=== PATIENT | male | born 1995 | race Caucasian/White ===

== ENCOUNTER 2018-09-19 09:36 | Observation (INO) ==
--- NOTE | 2018-09-19 09:41 | Emergency Department Note ---
Disposition Clinical Impression: Hyperglycemia Constipation Qualifiers: Constipation type: unspecified constipation type Qualified Code(s): K59.00 - Constipation, unspecified DKA (diabetic ketoacidoses) Qualifiers: Diabetes mellitus type: other specified (including RU) Diabetes mellitus complication detail: without coma Qualified Code(s): E13.10 - Other specified diabetes mellitus with ketoacidosis without coma Disposition: Admitted As Inpatient Condition: Good Referrals: [facility] [Outside] Forms: ED Satisfaction Letter, Work/School Release Time of Disposition: 10:03 General Adult HPI - General Stated complaint: Constipation Time Seen by Provider: 09/19/18 09:39 Source: patient Mode of arrival: ambulatory Limitations: no limitations Nursing Notes Reviewed: Yes Vital Signs Reviewed: Yes - History of Present Illness HPI Narrative: 23-year-old male with insulin-dependent diabetes mellitus for evaluation of constipation. Patient states that he is not had a normal bowel movement for the past week and half. Patient has been having some liquid stools. States this is similar presentation to his constipation over a year ago. At that time the patient did take some MiraLAX which resolved the symptoms. Patient did not take any MiraLAX prior to ED arrival. Patient's mother did give him some linzess. Patient reports some nausea but no episodes of vomiting. No fevers. Patient checks his blood sugar earlier today and give himself some insulin. Patient denies history of DKA. Denies any prior abdominal surgeries. Does have a family history of IBS. - Related Data Allergies Allergy/AdvReac Type Severity Reaction Status Date / Time Amoxicillin Allergy See Verified 09/19/18 09:41 Comments All systems ED: reviewed and negative except as stated. Constitutional: Denies: fever Cardiovascular: Denies: chest pain Respiratory: Denies: cough, dyspnea Gastrointestinal: Reports: abdominal pain, nausea, constipation Past Medical History - Past Medical History Source: patient Physical Exam - General Limitations: no limitations General appearance: alert, in no apparent distress - Head Head exam: atraumatic, normocephalic, normal inspection - Eye Eye exam: Present: normal appearance, PERRL, EOMI - ENT ENT exam: normal exam, mucous membranes moist - Neck Neck exam: Present: normal inspection, trachea midline - Chest Chest inspection: Present: normal inspection - Respiratory Respiratory exam: Present: normal lung sounds bilaterally. Absent: respiratory distress - Cardiovascular Cardiovascular exam: Present: regular rate, normal rhythm. Absent: systolic murmur - Abdominal Exam Abdominal exam: Present: soft, Non-Tender, hyperactive bowel sounds. Absent: guarding, rebound - Extremities Exam Extremities exam: Present: normal inspection. Absent: pedal edema - Expanded Lower Extremity Exam Neurovascular/Tendon exam: Present: normal capillary refill - Back Exam Back exam: Present: normal inspection - Neurological Exam Neurological exam: Present: alert, oriented X3 - Skin Skin exam: Present: warm, dry, intact, normal color Course Course Narrative: Patient seen and examined. Patient's abdomen is nonsurgical. Does have hyperactive bowel sounds but appears be soft. Mother is requesting imaging. Will get a KUB. Patient also get a POC glucose. Patient does not appear clinically dehydrated. We will treat his symptoms with MiraLAX and have appropriate follow-up with his primary care doctor. Continue with good diabetic control. - Reevaluation(s) Reevaluation #1: Patient had an elevated PSA glucose. Prompted additional labs and IV fluids. Time: 10:26 Reevaluation #2: Patient presented with signs of constipation. Patient did have a PSA glucose which was elevated which prompted additional evaluation to ensure the patient was not in DKA. Patient labs show mild DKA. Patient will be fluid hydrated and started on insulin drip. Mother states the patient has had decreased by mouth intake. Concerns the patient may worsen if sent home without thorough correction. Mom is concerned the patient symptoms would get worse if not properly corrected. Patient was started on insulin drip with IV fluid hydration. Patient does not have a gap. Time: 11:21 Vital Signs Temperature 99.1 F 09/19/18 09:38 Pulse Rate 104 09/19/18 09:38 Respiratory Rate 16 09/19/18 09:38 Blood Pressure 103/66 09/19/18 09:38 O2 Sat by Pulse Oximetry 99 09/19/18 09:38 Temperature 99.1 F 09/19/18 10:40 Pulse Rate 89 09/19/18 10:40 Respiratory Rate 16 09/19/18 10:40 Blood Pressure 125/79 09/19/18 10:40 O2 Sat by Pulse Oximetry 99 09/19/18 10:40 Oxygen Delivery Oxygen Delivery Room Air Medical Decision Making - MDM Narrative Medical decision making narrative: Patient presented for concerns of constipation. Patient's initial ED evaluation prompted POC glucose. Patient's glucose was elevated which prompted additional evaluation to ensure the patient was not in DKA. Patient labs show some mild DKA with acidosis with a pH is 7.31 ketones as well as hyperglycemia. Patient does not have a gap. Patient does have concerns of worsening fluid status upon discharge. Patient will be resuscitated with crystalloid as well as insulin. Patient's abdomen is soft and is no concerns for any surgical intra-abdominal pathology. Patient does have moderate stool in the colon consistent with const ipation. At this juncture, the most likely etiology of the patient's DKA is secondary to his poor by mouth intake with his medications. - Lab Data Lab results reviewed: Yes I reviewed the patient's lab results. Result diagrams: 09/19/18 10:32 09/19/18 10:32 Lab Results 09/19/18 09/19/18 09/19/18 Range/Units 10:23 10:32 10:32 WBC 5.9 (4.3-11.1) K/mcL RBC 5.41 (4.19-5.50) M/mcL Hgb 15.8 (12.9-16.9) g/dL Hct 45.9 (37.5-50.1) % MCV 84.8 (83.0-100.0) fL MCH 29.2 (28.0-33.3) pg MCHC 34.4 (31.6-35.5) g/dL RDW 12.0 (11.5-14.5) % Plt Count 175 (140-400) K/mcL MPV 11.6 (9.4-12.4) fL Immature Gran % 0.5 (0-4) % Seg Neutrophils % 71.0 % Lymphocytes % 14.2 % Monocytes % 12.1 % Eosinophils % 1.9 % Basophils % 0.3 % Neutrophils # 4.2 (1.6-8.9) K/mcL Lymphocytes # 0.8 (0.6-4.6) K/mcL Monocytes # 0.7 (0.0-1.3) K/mcL Eosinophils # 0.1 (0.0-0.6) K/mcL Basophils # 0.0 (0.0-0.2) K/mcL VBG pH (7.32-7.42) pH Units VBG pCO2 (41-51) mmHg VBG pO2 (25-50) mmHg VBG HCO3 (21-27) mEq/L Sodium 133 L (136-145) mEq/L Potassium 4.2 (3.5-5.1) mEq/L Chloride 100 (98-107) mEq/L Carbon Dioxide 25 (23-29) mEq/L BUN 16 (6-20) mg/dL Creatinine 0.88 (0.70-1.30) mg/dL Est GFR ( Amer) > 60 (> 60) Est GFR (Non-Af Amer) > 60 (> 60) BUN/Creatinine Ratio 18 (6-26) Glucose 371 H (70-105) mg/dL POC Glucose 348 H (70-99) mg/dL Calculated Osmolality 292 (280-300) Calcium 8.6 (8.6-10.3) mg/dL Beta-Hydroxybutyric Acd (0.02-0.27) mmol/L 09/19/18 09/19/18 Range/Units 10:32 10:45 WBC (4.3-11.1) K/mcL RBC (4.19-5.50) M/mcL Hgb (12.9-16.9) g/dL Hct (37.5-50.1) % MCV (83.0-100.0) fL MCH (28.0-33.3) pg MCHC (31.6-35.5) g/dL RDW (11.5-14.5) % Plt Count (140-400) K/mcL MPV (9.4-12.4) fL Immature Gran % (0-4) % Seg Neutrophils % % Lymphocytes % % Monocytes % % Eosinophils % % Basophils % % Neutrophils # (1.6-8.9) K/mcL Lymphocytes # (0.6-4.6) K/mcL Monocytes # (0.0-1.3) K/mcL Eosinophils # (0.0-0.6) K/mcL Basophils # (0.0-0.2) K/mcL VBG pH 7.31 L (7.32-7.42) pH Units VBG pCO2 50 (41-51) mmHg VBG pO2 39 (25-50) mmHg VBG HCO3 25 (21-27) mEq/L Sodium (136-145) mEq/L Potassium (3.5-5.1) mEq/L Chloride (98-107) mEq/L Carbon Dioxide (23-29) mEq/L BUN (6-20) mg/dL Creatinine (0.70-1.30) mg/dL Est GFR ( Amer) (> 60) Est GFR (Non-Af Amer) (> 60) BUN/Creatinine Ratio (6-26) Glucose (70-105) mg/dL POC Glucose (70-99) mg/dL Calculated Osmolality (280-300) Calcium (8.6-10.3) mg/dL Beta-Hydroxybutyric Acd 1.93 H (0.02-0.27) mmol/L - Radiology Data Radiology results reviewed: Yes I reviewed the patient's radiology results. KUB X-Ray 09/19/18 10:02 IMPRESSION: No acute findings. Moderate amount stool in the right colon. D/ / Jodi Brooks MD / Jodi Brooks MD Interpreting Provider: Jodi Brooks MD S.[facility] - [facility] Situation: Demographics Background: Presenting Complaint Assessment: Vital Signs, Course and respsone to treatment, Patient/Family Expectation Recommendation: Barrier(s) to disposition, Recommendation based on pending studies, treatments, or consults [email or web address] Report Given to: Dr. Todd Araiza Repor Time: 11:27 Attestation Statement - Attestation Attestation: I examined this patient and my medical decision-making was reviewed with the Resident Physician, Dr. Eastman. I agree with the documented findings, disposit ion and treatment plan as described except to the extent set forth below. Pt is a 23 yo wm, hx Type 1 DM who is here with c/o constipation x 10 days, and now with c/o dec PO intake secondary to nausea and abd bloating and discomfort. No F/C, pt does report that his BS was elevated this morning and took additional SS insulin prior to coming into the ER today. No prior hx DKA, or hospit alizations for DM. Pt denies any blood in stool, no ill contacts. No meds that should provoke constipation. I agree with the PE findings as documented, VSS. Pt appears clinically dehydrated, with dry MM/lips, and no peritoneal signs on abd exam. Pt received IV flluids, lab assessment for possible DKA and AAS. AAS shows constipation. No obstruction. Labs meet criteria for DKA. Mother doesn't feel he can take PO well due to constipation, and stool softeners could precipitate additional fluid losses. Will admit for obs for DKA and constipation. D/W hospitalist.
--- NOTE | 2018-09-19 10:13 | Emergency Department Note ---
Addendum entered and electronically signed by Maddi Rodriguez 09/19/18 20:31: Original Note: Disposition Clinical Impression: Hyperglycemia, DKA (diabetic ketoacidoses) Constipation Qualifiers: Constipation type: unspecified constipation type Qualified Code(s): K59.00 - Constipation, unspecified Disposition: Admitted As Inpatient Condition: Good Referrals: [facility] [Outside] Forms: ED Satisfaction Letter, Work/School Release Abdominal Pain HPI - General Chief Complaint: ED Abdominal Pain Stated Complaint: Constipation Time Seen by Provider: 09/19/18 09:39 Source: patient, family Mode of arrival: ambulatory Limitations: no limitations Vital Signs Reviewed: Yes - History of Present Illness HPI Narrative: Mr. Mills is a 23yom w. hx of DM1 who presents to the ED c/o constipation. pt reports that he has not had a normal formed bowel movement x1.5wks a/w vomiting at during first day of constipation, says since onset he has had a few "yellow liquid" BMs. he is c/o continued nausea with diffuse abd pain/cramping and bloating, has been belching frequently and continues to pass gas. has had decreased appetite, stating he feels like his food is just sitting and not going down, but is keeping fluids onboard. he notes he has had some chills but no fevers, and some decreased urine output which he describes as "concentrated". pt had a similar episode of constipation ~1yr ago and took "a concoction of 11 doses of miralax" to relieve his sx at that time. mom notes that there is a significant family hx of IBS and pt has occassionally used her Linzess, says he used it yesterday with no relief of sx. he has not taken any laxatives to try to relieve sx. mom also notes that they believe pt may have diabetic gastroparesis, says he is supposed to see his PCP this week to get a referral to GI for further w/u. pt notes that his blood sugars have been somewhat variable since onset of constipation, said hs Glu was 199 this am, took his insulin; upon recheck Glu was 212 so he gave himself an additional insulin correction. pt and mother report that he has never been in DKA. 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 Pt Subjective Complaint: abdominal pain, other (diffuse, a/w constipation) Onset (ago): day(s) (10) Consistency: constant Location: diffuse Pain Severity: mild, moderate Pain Scale: 7 Quality: cramping, aching, fullness Radiation: other (R chest) Migration to: no migration Improves with: nothing Worsens with: eating, other (leaning forward) Context: history of similar episodes (x1), other (hx IBS, possible w/u for DM gastroparesis) Associated symptoms: Reports: nausea, vomiting (resolved), diarrhea ("yellow liquid"), chills, constipation, anorexia. Denies: fever, hematemesis, hematochezia, melena, hematuria Treatments prior to arrival: none - Related Data Allergies Allergy/AdvReac Type Severity Reaction Status Date / Time Amoxicillin Allergy See Verified 09/19/18 09:41 Comments Review of Systems: As Per HPI Constitutional: Reports: chills. Denies: fever Cardiovascular: Denies: chest pain, palpitations, dyspnea on exertion, syncope Respiratory: Denies: cough, dyspnea, wheezes Gastrointestinal: Reports: abdominal pain, nausea, vomiting, diarrhea, constipation. Denies: hematemesis, melena, hematochezia Genitourinary: Reports: dysuria, other (decreased frequency, "concentrated urine"). Denies: urgency, frequency, hematuria Endocrine: Denies: fatigue, polydipsia, polyuria Course Vital Signs Temperature 99.1 F 09/19/18 09:38 Pulse Rate 104 09/19/18 09:38 Respiratory Rate 16 09/19/18 09:38 Blood Pressure 103/66 09/19/18 09:38 O2 Sat by Pulse Oximetry 99 09/19/18 09:38 Temperature 99.1 F 09/19/18 09:38 Pulse Rate 104 09/19/18 09:38 Respiratory Rate 16 09/19/18 09:38 Blood Pressure 103/66 09/19/18 09:38 O2 Sat by Pulse Oximetry 99 09/19/18 09:38 Oxygen Delivery Oxygen Delivery Room Air Abdominal Pain - Lab Data Result diagrams: 09/19/18 10:32 09/19/18 10:32 Lab Results 09/19/18 Range/Units 10:23 POC Glucose 348 H (70-99) mg/dL Attestation Statement - Attestation Attestation: I have re-performed and reviewed the history documented by the medical student, and I confirm its accuracy except as noted below
[2018-09-19] MEDS ORDERED: Ondansetron 4 MG/2 ML VIAL IVP ONE (10:25)
[2018-09-19] MEDS ORDERED: 0.9 % Sodium Chloride 1,000 ML IVC ONE ×2 (10:25→10:52)
[2018-09-19 10:45] LABS: Basophils % 0.3 %; Eosinophils # 0.1 K/mcL (0.0-0.6); Eosinophils % 1.9 %; Hematocrit 45.9 % (37.5-50.1); Hemoglobin 15.8 g/dL (12.9-16.9); Immature Granulocytes % 0.5 % (0-4); Lymphocytes # 0.8 K/mcL (0.6-4.6); Lymphocytes % 14.2 %; Mean Corpuscular HGB Conc 34.4 g/dL (31.6-35.5); Mean Corpuscular Hemoglobin 29.2 pg (28.0-33.3); Mean Corpuscular Volume 84.8 fL (83.0-100.0); Mean Platelet Volume 11.6 fL (9.4-12.4); Monocytes # 0.7 K/mcL (0.0-1.3); Monocytes % 12.1 %; Neutrophils # 4.2 K/mcL (1.6-8.9); Platelet Count 175 K/mcL (140-400); Red Blood Count 5.41 M/mcL (4.19-5.50)
[2018-09-19] MEDS ORDERED: Insulin Human Regular 10 UNIT in 0.9 % Sodium Chloride 10 ML IV ONE (10:46)
[2018-09-19 10:49] LABS: VBG HCO3 25 mEq/L (21-27); VBG PCO2 50 mmHg (41-51); VBG PH 7.31 pH Units (7.32-7.42); VBG PO2 39 mmHg (25-50)
[2018-09-19 11:07] LABS: BUN/Creatinine Ratio 18 (6-26); Blood Urea Nitrogen 16 mg/dL (6-20); Calcium 8.6 mg/dL (8.6-10.3); Carbon Dioxide 25 mEq/L (23-29); Chloride 100 mEq/L (98-107); Glucose 371 mg/dL (70-105); Osmolality,Calculated 292 (280-300); Potassium 4.2 mEq/L (3.5-5.1); Sodium 133 mEq/L (136-145); eGFR For Non-African Americans > 60 (> 60)
[2018-09-19] MEDS ORDERED: D5% in 0.45% NACL w KCl 20 MEQ/1,000 ML MLS IVC PRN (11:17)
[2018-09-19] MEDS ORDERED: *HR* Dextrose 50 % in Water (Syg) 50 ML SYRINGE IVP PRN (11:17)
[2018-09-19] MEDS ORDERED: Insulin Human Regular 100 UNIT in 0.9 % Sodium Chloride 100 ML IVC SCH (11:30)
[2018-09-19] MEDS ORDERED: 0.45 % Sodium Chloride w/KCl 20 MEQ/1,000 ML MLS IVC SCH (11:30)
[2018-09-19 11:36] LABS: Magnesium 1.7 mg/dL (1.6-2.6); Phosphorous 2.2 mg/dL (2.7-4.5)
[2018-09-19] MEDS ORDERED: Naloxone 0.4 MG/ML INJ IVP PRN (11:51)
--- NOTE | 2018-09-19 11:56 | Internal Med History&Physical ---
Date of Encounter: 09/19/18 Time of Encounter: 11:53 Internal Medicine - H&P: HPI Chief complaint: Diarrhea, Unable to take PO Admitted From: Home History of present illness: Mr. Mills is a 23 year old male with past medical history of type 1 diabetes since 8 years old on insulin, IBS for 3 years who came in with complain of not having normal bowel movement since last 1-1/2 week. Patient has history of fall irritable bowel disease with predominant diarrhea and has been elevated diarrhea for last 1.5 week. Per mother at bedside patient was referred to GI specialist and has not been seen by them yet. Patient has taken Imodium for diarrhea with minimal to no relief. He has some associated abdominal pain since yesterday which is cramping in nature coming and going every 15 minutes and occasionally when he moves. Denies any fevers but had some chills yesterday and felt cold. Patient initially thought to have constipation however on further history patient mentioned that he has not had normal bowel movement however had had constipation for last 1.5 week with about 3-4 episodes daily. He also has significant abdominal fullness sensation whenever he drinks any fluid to maintain hydration. Given his diabetes he came to the hospital he was not able to drink enough fluid to compensate for his diarrhea. He denies missing any in sulin dosages or previous history of DKA. He is comfortable managing his insulin regimen at home and did take insulin this morning as well as long-acting insulin yesterday. He takes 24 units after [facility]. He has history of anxiety and takes Lexapro for it with some benefit. He denies taking any pain medication or antidiarrheal medication. Occasionally he had tried Imodium with minimal relief he complains of sore taste in mouth and occasional burning sensation in his chest. Admission was requested given patient was not able to tolerate by mouth fluids. On interview patient in no acute distress was able to corroborate up I will mention history. Denies chest pain, difficulty breathing, urinary complaints. Is associated nausea and becomes full with minimal amount of fluid intake. Past Med Surg Social Fam HX - Past Medical History Medical history: diabetes Psychiatric history: anxiety, depression - Past Surgical History Additional surgical history: Heart ablation for SVT - Social History Smoking Status: Current every day smoker Alcohol use: occasionally Drug use: marijuana - Additional Family History Additional family history: type 2 diabetes in grandfather, anxiety in father and mother. IBS in mother. Internal Medicine - H&P: Meds Allergy/AdvReac Type Severity Reaction Status Date / Time Amoxicillin Allergy See Verified 09/19/18 09:41 Comments All Systems PM: A 10-system review of systems was performed and is negative for pertinent findings except as documented above in the HPI. - Constitutional Vitals: Temp Pulse Resp BP Pulse Ox 99.1 F 89 16 125/79 99 09/19/18 10:40 09/19/18 10:40 09/19/18 10:40 09/19/18 10:40 09/19/18 10:40 Exam: Constitutional: Vitals as noted. Conversant. No Apparent Distress. Eyes : Sclera white, conjunctiva clear, no lid lag, PEARLA. ENT : Grossly normal hearing. Oropharyngeal exam unremarkable. Dry mucus membranes. No JVD, no cervical lymphadenopathy. no thyromegaly or mass. Respiratory : Clear to auscultation bilaterally. No accessory muscle use, rales, rhonchi or wheezes Cardiovascular : RRR, +S1, +S2. no murmur, gallop, rubs. No chest wall tenderness GI/Abdominal : Soft, mild epigastric tenderness, Non-distended, normal bowel sounds, soft, no peritoneal signs. no orgenomegaly or mass appreciated. no herni a. Musculoskeletal: no deformity noted. no edema or cyanosis. warm extremities, pulses palpable and symmetrical in UE/LE. no calf tenderness. Neurological: AO X3, CN II-XII grossly intact, grossly normal motor and sensory exam. Skin: No skin rash, lesions or ulcers noted. Pych: Good insight and judgement. Intact memory. AOx3. Internal Med - H&P Results - Labs CBC & Chem 7: 09/19/18 10:32 09/19/18 10:32 Labs: Short CBC 09/19/18 Range/Units 10:32 WBC 5.9 (4.3-11.1) K/mcL Hgb 15.8 (12.9-16.9) g/dL Hct 45.9 (37.5-50.1) % Plt Count 175 (140-400) K/mcL Neutrophils # 4.2 (1.6-8.9) K/mcL BMP 09/19/18 10:32 Sodium 133 L Potassium 4.2 Chloride 100 Carbon Dioxide 25 BUN 16 Creatinine 0.88 Glucose 371 H Calcium 8.6 - ABG Interpretation ABG results: 09/19/18 10:45 VBG pH 7.31 L VBG pCO2 50 VBG pO2 39 VBG HCO3 25 - Impressions ITS Impressions KUB X-Ray 09/19/18 10:02 IMPRESSION: No acute findings. Moderate amount stool in the right colon. D/ / Jodi Brooks MD / Jodi Brooks MD Interpreting Provider: Jodi Brooks MD - Assessment and plan (1) Dehydration Current Visit: Yes Status: Acute Assessment and plan: - Patient has hyperglycemia with ongoing diarrhea and unable to take significant by mouth fluids - We will admit under observation for IV fluids - No Anionic gap However with elevated Beta-hydroxybutyric acid likely from decreased by mouth intake - Discontinue insulin drip and start sliding scale insulin with 20 units of Levemir - Mild dehydration clinically. Continue IV fluids of NS at 125 mL an hour - Accu-Checks before meals at bedtime - Loperamide for IBS to help decrease episodes of diarrhea - Sodium phosphate for low phosphorus (2) Hyperglycemia Current Visit: Yes Status: Acute Assessment and plan: - Accu-Cheks before meals at bedtime - Sliding scale insulin along with 20 units Levemir at bedtime (3) Diabetes mellitus Current Visit: Yes Status: Acute Assessment and plan: - As above - Does not appear to be in DKA Qualifiers: Diabetes mellitus type: type 1 Diabetes mellitus complication status: with hyperglycemia Qualified Code(s): E10.65 - Type 1 diabetes mellitus with hyperglycemia - Time Spent With Patient Total time spent is greater than 50% in coordination of care (as documented) at patient's floor/unit and/or counseling patient: - VTE Reasons for not Prescribing Prophylaxis: Treatment not Indicated - Low risk for VTE
[2018-09-19] MEDS ORDERED: Loperamide 1 MG/5 ML UDC PO PRN (12:16)
[2018-09-19 13:03] LABS: Bilirubin,Urine Negative (Negative); Blood,Urine Negative (Negative); Clarity,Urine Clear (Clear); Color,Urine Yellow (Yellow); Glucose,Urine (UA) >=1000 mg/dL (Normal); Ketones,Urine 80 mg/dL (Negative); Leukocyte Esterase,Urine Negative (Negative); Nitrite,Urine Negative (Negative); Protein,Urine Negative (Neg-Trace); Specific Gravity,Urine > 1.030 (1.010-1.025); Urobilinogen,Urine Normal (Normal)
[2018-09-19] MEDS: 0.9 % Sodium Chloride 1,000 ML IVC SCH ×2 (15:21→23:20)
[2018-09-19] MEDS: Insulin LISPRO 300 UNITS/3 ML VIAL SQ SCH (16:39)
[2018-09-19] MEDS ORDERED: Insulin DETEMIR 100 UNIT/ML X5UNITS SQ SCH (21:00)
[2018-09-19] MEDS ORDERED: Ondansetron 4 MG/2 ML VIAL IVP PRN (21:38)
[2018-09-19] MEDS ORDERED: Ondansetron 4 MG/2 ML VIAL ONE (21:43)
[2018-09-20] MEDS ORDERED: *HR* Promethazine 25 MG/ML VIAL IVP PRN (01:56)
[2018-09-20 03:58] LABS: BUN/Creatinine Ratio 11 (6-26); Blood Urea Nitrogen 8 mg/dL (6-20); Calcium 8.2 mg/dL (8.6-10.3); Carbon Dioxide 28 mEq/L (23-29); Chloride 105 mEq/L (98-107); Glucose 192 mg/dL (70-105); Osmolality,Calculated 288 (280-300); Potassium 3.6 mEq/L (3.5-5.1); Sodium 137 mEq/L (136-145); eGFR For Non-African Americans > 60 (> 60)
[2018-09-20] MEDS: 0.9 % Sodium Chloride 1,000 ML IVC SCH (07:35)
[2018-09-20] MEDS: Insulin LISPRO 300 UNITS/3 ML VIAL SQ SCH ×3 (07:37→16:45)
[2018-09-20] MEDS ORDERED: 0.9 % Sodium Chloride 500 ML IVC ONE (09:07)
--- NOTE | 2018-09-20 09:07 | Internal Med Progress Note ---
<Juanjose Serrano - Last Filed: 09/20/18 11:37> Hospitalist Progress Note - Encounter Date of Encounter: 09/20/18 Time of Encounter: 09:00 - Subjective Interval History: Laying comfortably in bed. He states he had diarrhea for 10 days and then the last 3 days he has not had a BM. Last night he said he was able to have minimal hard, formed BM that required a lot of straining. He has RLQ abdominal pain and occasional nausea. Denies blurry vision, diplopia, dizziness/lightheadedness, chest pain, sob, abdominal pain elsewhere or vomiting. - Exam Vitals: Temp Pulse Resp BP Pulse Ox 97.7 F 60 17 97/58 99 09/20/18 07:12 09/20/18 07:12 09/20/18 07:12 09/20/18 07:12 09/20/18 05:00 Exam: General: Awake, alert, appears stated age, no acute distress or signs of toxicity HEENT: EOMi, pupils equal/round, mucus membranes moist Cardiac: RRR, no murmurs, heaves, thrills appreciated, radial pulse 2+ bilaterally, normal capillary refill, no edema Chest: Symmetric chest rise, non tender Pulmonary: Normal resp effort, good air movement, CTAB, no wheezes, rhonchi, rales appreciated Abdominal: Soft, mildly tender to palpation RLQ, no distention, guarding, rebound tenderness, or rigidity Neuro: AOx3, CN grossly intact Psych: Normal affect Integumentary: [place], warm, dry, intact - Assessment and Plan (1) Dehydration Current Visit: Yes Status: Acute Assessment and Plan: -Had diarrhea for 10 days that resolved 4 days ago. He has not had diarrhea since but rather constipation. -He has not been able to tolerate normal fluid intake by mouth cause he feels full with minimal intake for hours after. -Has received ~4L IVF since arrival. -BP has dropped some overnight and most recently 97/58, no increase in HR or symptoms of hypovolemia. -Will give 500ml bolus now. -Likely dc tomorrow. (2) Constipation Current Visit: Yes Status: Acute Assessment and Plan: -Had diarrhea for 10 days followed by no BM for 3 days prior to admission. -Had 1 very small BM that was hard and required lots of straining last night. None since. -RLQ pain/tenderness. -Moderate amount of stool in R colon on KUB 09/19/18. -Will continue miralax and fluids now. (3) Hyperglycemia Current Visit: Yes Status: Acute Assessment and Plan: -Type 1 DM -Glucose 371 in ED, no gap at 8, ketones at 1.93 in ED and started on DKA protocol with IVF and insulin infusion. -DKA is not evident now and insulin infusion has been stopped. -Continue basal and SSI. -Glucose has been trending down and most recently 107 POC. (4) Diabetes mellitus Current Visit: Yes Status: Acute Assessment and Plan: -Does not appear to be in DKA currently. -Continue basal and SSI -Continue accucheks -Most recent POC glucose 107 DVT Prophylaxis: Mechanical - Time Spent with Patient Total time spent is greater than 50% in coordination of care (as documented) at patient's floor/unit and/or counseling patient: less than 15 minutes Plan of Care Discussed with: patient Internal Medicine: Result - Labs CBC & Chem 7: 09/19/18 10:32 09/20/18 03:16 Labs: Short CBC 09/19/18 Range/Units 10:32 WBC 5.9 (4.3-11.1) K/mcL Hgb 15.8 (12.9-16.9) g/dL Hct 45.9 (37.5-50.1) % Plt Count 175 (140-400) K/mcL Neutrophils # 4.2 (1.6-8.9) K/mcL BMP 09/19/18 09/20/18 10:32 03:16 Sodium 133 L 137 Potassium 4.2 3.6 Chloride 100 105 Carbon Dioxide 25 28 BUN 16 8 Creatinine 0.88 0.74 Glucose 371 H 192 H Calcium 8.6 8.2 L Urine 09/19/18 Range/Units 12:30 Urine Color Yellow (Yellow) Urine Clarity Clear (Clear) Urine pH 6.0 (5.0-8.0) pH Units Ur Specific [place] > 1.030 H (1.010-1.025) Urine Protein Negative (Neg-Trace) mg/dL Urine Glucose (UA) >=1000 H (Normal) mg/dL - Impressions Impressions KUB X-Ray 09/19/18 10:02 IMPRESSION: No acute findings. Moderate amount stool in the right colon. D/ / Jodi Brooks MD / Jodi Brooks MD Interpreting Provider: Jodi Brooks MD - VTE Reasons for not Prescribing Prophylaxis: Treatment not Indicated - Low risk for VTE Consult Discharge Plan - Plan Referrals: Luna Paris CNP [Partnered Physician] - 09/21/18 8:30 am <Kassie Ibrahim - Last Filed: 09/20/18 15:18> Hospitalist Progress Note - Exam Vitals: Temp Pulse Resp BP Pulse Ox 97.7 F 56 19 124/75 97 09/20/18 07:12 09/20/18 11:30 09/20/18 11:30 09/20/18 11:30 09/20/18 11:30 - Assessment and Plan (1) Constipation Current Visit: Yes Status: Acute (2) Hyperglycemia Current Visit: Yes Status: Acute (3) Dehydration Current Visit: Yes Status: Acute (4) Diabetes mellitus Current Visit: Yes Status: Acute - Time Spent with Patient Total time spent is greater than 50% in coordination of care (as documented) at patient's floor/unit and/or counseling patient: Internal Medicine: Result - Labs CBC & Chem 7: 09/19/18 10:32 09/20/18 03:16 Labs: BMP 09/20/18 03:16 Sodium 137 Potassium 3.6 Chloride 105 Carbon Dioxide 28 BUN 8 Creatinine 0.74 Glucose 192 H Calcium 8.2 L - Attending Attestation I examined this patient and my medical decision-making was reviewed with the Resident Physician Dr Serrano. I agree with the documented findings, disposition and treatment plan as described except to the extent set forth below. Mr Mills was admitted with recent frequent small liquid bms and now 4 days of constipation with hard small bm last night. He had associated nausea and fullness with meals that has since resolved. He was admitted with ivfs for possible dehydration. There was concern for DKA in ED and he was briefly on insulin drip. It appears now he was hyperglycemic with a mixed picture though not entirely meeting criteria for DKA, since that time bs are controlled on basal and SSI . awake, confirms more recently constipated. cramping abd pain intermittently. small hard brown bm that he strained with last evening. no nausea, emesis with breakfast this morning. no lightheadedness, dizziness with low/normotensive bps. Overall starting to feel better. denies fevers, chills. gen- alert, awake,appears stated age eyes- pupils equal round, no scleral icterus, no pallor conjuntiva cv- reg rate and rhythm, normal s1,s2, no murmurs appreciated lungs- ctabl, no wheezing, rhonchi or crackles abd- soft, non tender, non distended, + bs neuro- AAOx3 constipation- KUB with moderate stool burden right colon, small hard bm last evening, cont miralax bid, diet as tolerated Hyperglycemia- improved, bs now under 200, takes 24 lantus hs at home, 20 untis levemir hs here + SSI, cont to monitor; there is no apparent infectious etiology of elevated blood sugars as he denies any s/s of infection on ros and has no fever or leukocytosis Possible dehydration on admission- ivfs on admit, creat is normal Low Bp overnight/early am check- s/p 500 cc ns bolus, normotensive, asx, cont to monitor now off fluids dispo- anticipate dc to home in am if cont to tolerate oral intake and has bm <Juanjose Serrano - Last Filed: 09/20/18 11:37> (2) Constipation Qualifiers: Constipation type: unspecified constipation type Qualified Code(s): K59.00 - Constipation, unspecified (4) Diabetes mellitus Qualifiers: Diabetes mellitus type: type 1 Diabetes mellitus complication status: with hyperglycemia Qualified Code(s): E10.65 - Type 1 diabetes mellitus with hy perglycemia <Kassie Ibrahim - Last Filed: 09/20/18 15:18> (1) Constipation Qualifiers: Constipation type: unspecified constipation type Qualified Code(s): K59.00 - Constipation, unspecified (4) Diabetes mellitus Qualifiers: Diabetes mellitus type: type 1 Diabetes mellitus complication status: with hyperglycemia Qualified Code(s): E10.65 - Type 1 diabetes mellitus with hyperglycemia
[2018-09-20 16:36] VITALS: BP 136/77
--- NOTE | 2018-09-20 18:25 | Discharge Summary ---
<Adal Major - Last Filed: 09/20/18 18:28> - NOTES TO OUTPATIENT PROVIDER Notes to Outpatient Provider: 23 yo patient with IBS came in with constipation/RLQ pain. KUB with mod R colon stool, no BM 3 days prior to admission. Received ~4L IVF. Return of normal BMs on miralax, glucose improved. Discharged with outpatient follow up scheduled on 09/21/18. Date of Encounter: 09/20/18 Time of Encounter: 18:23 - Discharge Diagnosis (1) Constipation Priority: Primary Status: Acute Assessment and Plan: -Had diarrhea for 10 days followed by no BM for 3 days prior to admission. -Had 1 very small BM that was hard and required lots of straining last night. None since. -RLQ pain/tenderness. -Moderate amount of stool in R colon on KUB 09/19/18. -Will continue miralax and fluids now. Qualifiers: Constipation type: unspecified constipation type Qualified Code(s): K59.00 - Constipation, unspecified (2) Hyperglycemia Priority: Secondary Status: Acute Assessment and Plan: -Type 1 DM -Glucose 371 in ED, no gap at 8, ketones at 1.93 in ED and started on DKA protocol with IVF and insulin infusion. -DKA is not evident now and insulin infusion has been stopped. -Continue basal and SSI. -Glucose has been trending down and most recently 107 POC. (3) Dehydration Priority: Secondary Status: Acute Assessment and Plan: -Had diarrhea for 10 days that resolved 4 days ago. He has not had diarrhea since but rather constipation. -He has not been able to tolerate normal fluid intake by mouth cause he feels f ull with minimal intake for hours after. -Has received ~4L IVF since arrival. -BP has dropped some overnight and most recently 97/58, no increase in HR or symptoms of hypovolemia. -Will give 500ml bolus now. -Likely dc tomorrow. (4) Diabetes mellitus Priority: Secondary Status: Acute Assessment and Plan: -Does not appear to be in DKA currently. -Continue basal and SSI -Continue accucheks -Most recent POC glucose 107 Qualifiers: Diabetes mellitus type: type 1 Diabetes mellitus complication status: with hyperglycemia Qualified Code(s): E10.65 - Type 1 diabetes mellitus with hyperglycemia Hospital course: Mr. Mills is a 23 year old male with a PMH of DM and IBS who came in with constipation/RLQ pain. KUB revealed mod R colon stool, no BM 3 days prior to admission. Patient received ~4L IVF. He had return of normal bowel function with miralax, glucose level normalized. Patient was much improved after overnight stay and was very adamant about going home. Patient already had follow up scheduled with PCP 09/21/18. Mother is at bedside and all questions were answered. Discharge discussed with: patient, family, nurse - Time Spent with Patient Total time spent providing and/or coordinating discharge services: - Discharge Medications Home Medications: Escitalopram [Lexapro] 20 mg PO DAILY 09/19/18 [History] Insulin Glargine,Hum.rec.anlog [Toujeo Solostar] 24 unit SQ DAILY 09/19/18 [History] Insulin LISPRO [Admelog] 1 - 28 unit SQ TID 09/19/18 [History] Allergies/Adverse Reactions: Allergy/AdvReac Type Severity Reaction Status Date / Time Amoxicillin Allergy See Verified 09/19/18 09:41 Comments Date of admission: 09/19/18 13:50 Primary care physician: PCP NONE Discharging clinician: Kassie Ibrahim Anticipated date of discharge: 09/20/18 - Constitutional Vitals: Temp Pulse Resp BP Pulse Ox 97.7 F 76 19 136/77 98 09/20/18 07:12 09/20/18 16:32 09/20/18 16:32 09/20/18 16:32 09/20/18 16:32 General appearance: Present: cooperative, A&O X 3, pleasant, no acute distress, answers questions appropriately Exam: awake - Head Head exam: Present: atraumatic, normocephalic - Eye Eye exam: Present: PERRL, conjuntiva pink, sclera anicteric Pupils: Present: PERRL - ENT ENT exam: Present: mucous membranes moist, normal oropharynx - Neck Neck exam general surgery: Present: supple, trachea midline. Absent: lymphadenopathy - Respiratory Respiratory exam: Present: CTAB. Absent: accessory muscle use, rales, rhonchi, wheezes - Cardiovascular Cardiovascular exam: Present: RRR, +S1, +S2. Absent: diastolic murmur, gallop, rubs, systolic murmur - GI/Abdominal GI/Abdominal exam: Present: normal bowel sounds, soft, no peritoneal signs. Absent: distended, tenderness - Extremities Exam Extremities exam: Present: warm, radial pulses palpable and symmetrical. Absent: calf tenderness, cyanotic, pedal edema - Back Exam Back exam: Present: normal inspection. Absent: paraspinal tenderness, tenderness - Neurological Exam Neurological exam: Present: CN II-XII intact, oriented X3, no focal deficits. Absent: pronater drift, facial droop, speech deficit - Psychiatric Psychiatric exam: Present: normal affect, normal mood - Skin Skin exam: Present: dry, intact, warm - Patient Status Disposition: Home, Self-Care Condition: Good Functional capacity at discharge: independent ambulation Overall status at discharge: patient is back to baseline - Discharge Instructions Instructions: Dehydration (DC), Diabetes Mellitus Type 1 in Adults (DC) Follow Up With: Luna Paris CNP [Partnered Physician] - 09/21/18 8:30 am Forms: Inpatient Work/School Release - Diet and Activity Activity: increase activity as tolerated Diet: advance to your usual diet - VTE Reasons for not Prescribing Prophylaxis: Treatment not Indicated - Low risk for VTE <Kassie Ibrahim - Last Filed: 09/21/18 08:02> - Discharge Diagnosis (1) Constipation Status: Acute Qualifiers: Constipation type: unspecified constipation type Qualified Code(s): K59.00 - Constipation, unspecified (2) Hyperglycemia Status: Acute (3) Dehydration Status: Acute (4) Diabetes mellitus Status: Acute Qualifiers: Diabetes mellitus type: type 1 Diabetes mellitus complication status: with hyperglycemia Qualified Code(s): E10.65 - Type 1 diabetes mellitus with hyperglycemia Hospital course: Mr. Mills is a 23 year old male - Time Spent with Patient Total time spent providing and/or coordinating discharge services: Date of admission: 09/19/18 13:50 Primary care physician: PCP NONE - Constitutional Vitals: Temp Pulse Resp BP Pulse Ox 97.7 F 76 19 136/77 98 09/20/18 07:12 09/20/18 16:32 09/20/18 16:32 09/20/18 16:32 09/20/18 16:32 - Attending Attestation I examined this patient and my medical decision-making was reviewed with the Resident Physician Dr Major. I agree with the documented findings, disposition and treatment plan as described except to the extent set forth below. Mr Mills was admitted with recent frequent small liquid bms and now 4 days of constipation with hard small bm last night. He had associated nausea and fullness with meals that has since resolved. He was admitted with ivfs for possible dehydration. There was concern for DKA in ED and he was briefly on insulin drip. It appears now he was hyperglycemic with a mixed picture though not entirely meeting criteria for DKA, since that time bs are controlled on basal and SSI . He had multiple formed soft bms with miralax and tolerated all meals throughout the day. He has PCP follow up 09/21 and will be getting referred from that office to GI for diarrhea/constipation outpt eval. He was eager for dc to home, and was discharged in stable condition 09/20 evening. Pt feeling to baseline, no n/v/d today. Ate all meals without difficulty. no abd pain. gen- alert, awake,appears stated age eyes- pupils equal round, no scleral icterus cv- reg rate and rhythm, normal s1,s2, no murmurs appreciated lungs- ctabl, no wheezing, rhonchi or crackles abd- soft, non tender, non distended, + bs neuro- AAOx3 constipation, resolved- KUB with moderate stool burden right colon, resolved with miralax Hyperglycemia- bs improved with basal insulin; there is no apparent infectious etiology of elevated blood sugars as he denies any s/s of infection on ros and has no fever or leukocytosis Possible dehydration on admission- ivfs on admit, creat is normal Low Bp overnight/early am check- s/p 500 cc ns bolus, normotensive, asx, normotensive off fluids dispo-dc to home with pcp follow up next day
[2018-09-20] MEDS ORDERED: Insulin LISPRO 300 UNITS/3 ML VIAL SQ SCH (21:00)
== END 2018-09-20 18:32 | disposition home or self-care (01) ==
LOC: EMEROOARM 09:36 → SUATTDRO 13:50 → INTOOBSV 13:50 → 2NENU 13:50
PROVIDERS: ADMIT Internal Medicine; ATTEND Internal Medicine